=== PATIENT | male | born 1970 | race Caucasian/White ===

== ENCOUNTER 2024-05-26 21:02 | Emergency (ER) | payer BC, SELFPAY ==
--- NOTE | 2024-05-27 00:01 | ED.GENMED ---
History of Present Illness
General
Chief Complaint: Eye Problems
Source: patient and spouse
Time Seen by Provider: 05/26/24 23:22
History of Present Illness
History of Present Illness:
54-year-old male with no significant past medical history presenting emergency department for bilateral eye pain/burning/tearing that started around 11 AM today. 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
and states he does not believe he got anything into his eye. He notes foreign body sensation to both eyes. Denies any glasses or contact lens use. Denies any history of similar. Denies any trauma to the affected area. Difficult time stating if
he noticed any visual changes as patient states he is unable to hold his eyes open for long as there is considerable pain and tearing associated with this.
Past History
Past History
ED Past Medical History: None
ED Past Surgical History: Orthopedic
Social History
Tobacco: Smoker
Alcohol: None
Drug: None
Personal:
Living: with family
Employment: Employed
Review of Systems
Review of Systems
All Other Systems: ROS reviewed and negative except as documented in HPI and ROS
Phy Exam
Physical Exam
Physical Exam:
GENERAL: Alert , appears very uncomfortable and unable to open both eyes
EYE: Tetracaine instilled into both eyes with significant resolution of discomfort. There is significant tearing bilateral. Pupils 3 mm bilateral. EOMI, no proptosis, no chemosis, no ptosis
Fluorescein stain: Right eye: Large uptake measuring 2 mm horizontally at the inferior portion of the pupil. Left eye: Large uptake measuring 1-1/2 mm horizontally at the inferior portion of the pupil
Visual acuity: Right eye 20/80, left eye 20/80, both eyes 20/80
Head: Normocephalic atraumatic
NECK: Supple,
ENT: mmm.
LUNGS: no acute respiratory distress
NEUROLOGICAL: Alert and oriented
SKIN: Warm and dry, skin intact.
MUSCULOSKELETAL: well perfused.
PSYCH: Normal and appropriate interaction.
Scores
Heart Failure Risk
Heart Failure Risk Score: Not Applicable
Heart Score for Chest Pain Patients
STEMI patient?: Not applicable
Withdrawal Assessment of Alcohol
Withdrawal Assessment Completed?: Not applicable
Course
Orders/Labs/Results
Orders:
Orders
05/27/24 00:00
Visual Acuity- Treatment ONCE
Vital Signs
Initial and Last Documented VS:
Initial Vital Signs
Temp Pulse Resp BP Pulse Ox
97.8 F 66 22 156/96 95
05/26/24 21:04 05/26/24 21:04 05/26/24 21:04 05/26/24 21:04 05/26/24 21:04
Last Documented Vital Signs
Temp Pulse Resp BP Pulse Ox
97.8 F 66 22 156/96 95
05/26/24 21:04 05/26/24 21:04 05/26/24 21:04 05/26/24 21:04 05/26/24 21:04
MDM/Problems Addressed
Differential Diagnosis Includes:
Corneal abrasion, chemical conjunctivitis, allergic rhinitis, iritis, glaucoma
MDM/Problems Addressed:
54-year-old male presenting to the emergency department for evaluation of acute onset of bilateral ocular pain, increased tearing and visual disturbance. Fluorescein stain showed significant sized corneal abrasions bilateral. Patient had
significant relief with tetracaine. Will treat with Ocuflox antibiotic drops. Information for ophthalmology provided. NSAIDs/Tylenol as needed for pain. Stable for discharge home.
*Pulse Oximetry
Patient hypoxic: no
*Critical Care Note
Total Time (30-74mins, 75-104mins- exclusive of procedures): Not Applicable
ED Attending Note
-
Portions of this chart may have been created with voice recognition software.� Occasional wrong word or��sound alike� substitutions may have occurred due to the inherent limitations of voice recognition software.
Discharge Plan
Departure
Patient Disposition: Home (Routine Discharge)
Date of Disposition: 05/27/24
Time of Disposition: 00:01
Patient with high blood pressure during this ER visit?: Yes
Discharge Problem:
Corneal abrasion of both eyes
Instructions: Corneal Abrasion (DC)
Prescriptions:
New
ofloxacin [Ocuflox] 0.3 % drops
2 drp ophthalmic (eye) QID Qty: 10 0RF
Referrals:
Vickey Morse MD [Active] -
(Call in the morning for appointment
)
TeleJanusz agrawal MD [Family Provider] -
Interventions
Interventions:
*Risk Screen - Suicide Last Done: 05/26/24 21:04
*Neglect/Abuse Screening Last Done: 05/26/24 21:04
Discharge Date and Time
Print Language: ITALIAN
== END 2024-05-27 00:40 | disposition home or self-care (01) ==
LOC: EMR 21:02
PROVIDERS: EMERGENCY PHYSICIAN Student in an Organized Health Care Education/Training Program; FAMILY PHYSICIAN Internal Medicine
DX: S05.02XA Injury of conjunctiva and corneal abrasion without foreign body, left eye, initial encounter (principal); S05.01XA Injury of conjunctiva and corneal abrasion without foreign body, right eye, initial encounter; X58.XXXA Exposure to other specified factors, initial encounter; F17.200 Nicotine dependence, unspecified, uncomplicated
CPT/HCPCS: 99282